=== PATIENT | female | born 1995 | race American Indian/Alaskan Native ===

== ENCOUNTER 2017-05-23 04:14 | Emergency (ER) | payer BC ==
[2017-05-23 05:41] LABS: Basophils % (Auto) 0.2 % (0.0-1.8); Eosinophils % (Auto) 1.3 % (0.0-4.3); Hematocrit 36.4 % (30.3-42.9); Hemoglobin 11.8 gm/dl (10.1-14.3); Mean Corpuscular HGB Conc 32 % (30-34); Mean Corpuscular Hemoglobin 27 pg (28-32); Mean Corpuscular Volume 83 fl (79-97); Platelet Count 305 K/mm3 (140-440); Red Blood Count 4.41 M/mm3 (3.65-5.03); Red Cell Distribution Width 12.9 % (13.2-15.2); White Blood Count 6.4 K/mm3 (4.5-11.0)
[2017-05-23 05:54] LABS: Anion Gap 19 mmol/L; BUN/Creatinine Ratio 18.33; Blood Urea Nitrogen 11 mg/dL (7-17); Calcium 9.1 mg/dL (8.4-10.2); Carbon Dioxide 23 mmol/L (22-30); Chloride 97.5 mmol/L (98-107); Glucose 84 mg/dL (65-100); Potassium 4.3 mmol/L (3.6-5.0); Sodium 135 mmol/L (137-145)
--- NOTE | 2017-05-23 09:18 | XRay Report ---
ROUTINE CHEST, TWO VIEWS: HISTORY: Shortness of breath. The trachea, heart, mediastinal contour, lung heath and bony thorax are unremarkable. IMPRESSION: Unremarkable chest x-ray.
--- NOTE | 2017-05-23 09:30 | Emergency Department Report ---
HPI - General Chief Complaint: Dyspnea/Respdistress Time Seen by Provider: 05/23/17 09:05 - HPI HPI: This is a 21-year-old female presents to the emergency department with complaint of a 6 day history of intermittent upper abdominal discomfort. It is associated with nausea without vomiting and diarrhea but she denies any fever, dysuria, vaginal bleeding or discharge. He has taken some ibuprofen for her symptoms without any relief. She denies any past medical or surgical history. She does have a primary care physician but has not seen them regarding her symptoms. She denies any chest pain, back pain. She does not have any shortness of breath but says that deep inspiration worsens her abdominal discomfort. No recent travel or sick contacts at home. ED Past Medical Hx - Past Medical History Previous Medical History?: No - Surgical History Past Surgical History?: No - Social History Smoking Status: Never Smoker Substance Use Type: None - Medications Home Medications: Home Medications Medication Instructions Recorded Confirmed Last Taken Type Famotidine [Pepcid] 20 mg PO QDAY #20 tablet 05/23/17 Unknown Rx ED Review of Systems ROS: Stated complaint: CHEST PAIN Other details as noted in HPI Comment: All other systems reviewed and negative Constitutional: denies: chills, fever Eyes: denies: eye pain, eye discharge, vision change ENT: denies: ear pain, throat pain Respiratory: denies: cough, wheezing Cardiovascular: denies: chest pain, palpitations Gastrointestinal: abdominal pain, nausea, diarrhea. denies: vomiting Genitourinary: denies: urgency, dysuria, discharge Musculoskeletal: denies: back pain, joint swelling, arthralgia Skin: denies: rash, lesions Neurological: denies: headache, weakness, paresthesias Physical Exam - Physical Exam Vital Signs: Vital Signs 05/23/17 05/23/17 05:11 08:37 Temperature 98.7 F 98.2 F Pulse Rate 67 70 Respiratory 18 18 Rate Blood Pressure 110/73 Blood Pressure 117/67 [Left] O2 Sat by Pulse 99 100 Oximetry Physical Exam: GENERAL: The patient is well-developed well-nourished. HENT: Normocephalic. Atraumatic. Patient has moist mucous membranes. EYES: Extraocular motions are intact. Pupils equal reactive to light bilaterally. NECK: Supple. Trachea is midline. CHEST/LUNGS: Clear to auscultation. There is no respiratory distress noted. HEART/CARDIOVASCULAR: Regular. There is no tachycardia. There is no gallop rub or murmur. ABDOMEN: Abdomen is soft. There is some right upper quadrant and epigastric tenderness to palpation. No guarding or rebound tenderness. Patient has normal bowel sounds. There is no abdominal distention. SKIN: Skin is warm and dry. NEURO: The patient is awake, alert, and oriented. The patient is cooperative. The patient has no focal neurologic deficits. The patient has normal speech. MUSCULOSKELETAL: There is no tenderness or deformity. There is no limitation range of motion. There is no evidence of acute injury. ED Course Vital Signs 05/23/17 05/23/17 05:11 08:37 Temperature 98.7 F 98.2 F Pulse Rate 67 70 Respiratory 18 18 Rate Blood Pressure 110/73 Blood Pressure 117/67 [Left] O2 Sat by Pulse 99 100 Oximetry ED Medical Decision Making - Lab Data Result diagrams: 05/23/17 05:25 05/23/17 05:25 - EKG Data -: EKG Interpreted by Me EKG shows normal: sinus rhythm, axis, intervals, QRS complexes, ST-T waves Rate: normal - EKG Data When compared to previous EKG there are: previous EKG unavailable Interpretation: normal EKG - Radiology Data Radiology results: report reviewed, image reviewed interpreted by me: Chest x-ray does not show any acute process. There are no pleural effusions, obvious pneumonia and there is no pneumothorax. Abdominal x-ray shows nonspecific nonobstructive bowel gas. Upper abdominal ultrasound does not show any acute process. - Medical Decision Making 21-year-old female presents with 6 day history of intermittent abdominal pain, nausea without vomiting, and occasionally some diarrhea. Vital signs stable throughout her course including being afebrile. Labs are unremarkable. No urinary tract infection and the patient is not . An EKG was done that does not show any signs of a ST elevation AL, ischemia or dysrhythmia. X-rays of the abdomen and chest also do not show any acute process. Due to the upper abdominal discomfort, a limited right upper quadrant ultrasound was done that also does not show any signs of cholecystitis, cholelithiasis, or any acute process. She was given a pain pill and upon reevaluation she is feeling improved. She artery has a primary care doctor for follow-up but was also given a referral for gastroenterology and was started on some Pepcid. She appears safe for discharge home at this time but will return to the ER with any worsening of her symptoms or any acute distress. - Differential Diagnosis gastritis, cholecystitis, cholelithiasis, pancreatitis Critical Care Time: No Critical care attestation.: If time is entered above; I have spent that time in minutes in the direct care of this critically ill patient, excluding procedure time. ED Disposition Clinical Impression: Intermittent abdominal pain, Nausea without vomiting Disposition: TO HOME OR SELFCARE Is pt being admited?: No Condition: Stable Instructions: Abdominal Pain (ED) Additional Instructions: Please follow up with a primary care physician in the next few days. I've given you a referral for a local founder chairman and chief creative officer, Dr. Rodriguez, in case she would like to follow up regarding your abdominal pain. Return to the emergency Department with any worsening of your symptoms or any acute distress. Prescriptions: Famotidine [Pepcid] 20 mg PO QDAY #20 tablet Referrals: OZZIE HOLLINGSWORTH MD [Primary Care Provider] - 3-5 Days HAIDER RODRIGUEZ MD [Staff Physician] - 3-5 Days Time of Disposition: 11:54
[2017-05-23 09:54] LABS: Alanine Aminotransferase 10 units/L (7-56); Albumin 4.2 g/dL (3.9-5); Albumin/Globulin Ratio 1.4 %; Alkaline Phosphatase 54 units/L (35-129); Lipase 27 units/L (13-60); Total Protein 7.2 g/dL (6.3-8.2)
[2017-05-23 10:09] LABS: Bilirubin,Urine NEG (Negative); Blood,Urine NEG (Negative); Ketones,Urine NEG (Negative); Leukocyte Esterase,Urine NEG (Negative); Nitrite,Urine NEG (Negative); Protein,Urine <15 mg/dL mg/dL (Negative); Urobilinogen,Urine < 2.0 mg/dL (<2.0); WBC,Urine < 1.0 /HPF (0.0-6.0)
[2017-05-23] MEDS ORDERED: NORCO 5/325 PO ONE (10:17)
[2017-05-23 10:35] LABS: Bilirubin,Direct < 0.2 mg/dL (0-0.2); Bilirubin,Indirect 0.1 mg/dL
[2017-05-23 10:50] LABS: Mucus,Urine FEW /HPF
--- NOTE | 2017-05-23 10:50 | Ultrasound Report ---
RIGHT UPPER QUADRANT ULTRASOUND: HISTORY: Upper abdominal pain. Technique: Transabdominal ultrasound imaging with Doppler interrogation. FINDINGS: The gallbladder is sonolucent with no evidence of stones, polyps or wall thickening. The common duct is normal in caliber. Images of the liver parenchyma, pancreas, right kidney and aorta are within normal limits. No perihepatic ascites. IMPRESSION: Unremarkable right upper quadrant ultrasound.
[2017-05-23 11:30] VITALS: BP 109/58
--- NOTE | 2017-05-23 12:15 | XRay Report ---
ABDOMEN, 2 views: History: Abdominal pain. There is no evidence of free air beneath the diaphragms. The gas pattern within the abdomen is unremarkable. There is no evidence of bowel dilatation, significant air-fluid levels, or pathologic calcifications. Organ shadows are unremarkable. IMPRESSION: Unremarkable abdomen.
== END 2017-05-23 12:09 | disposition home or self-care (01) ==
LOC: ED 04:14
DX: R10.10 Upper abdominal pain, unspecified (principal); R11.0 Nausea
CPT/HCPCS: 36415; 71020; 74020; 76705; 80048; 80074; 81001; 81025; 83690; 84484; 85025; 93005; 93010